=== PATIENT | male | born 1950 | race African-American/Black ===

== ENCOUNTER 2025-02-19 10:10 | Observation (INO) ==
--- NOTE | 2025-02-19 10:56 | Emergency Department Note ---
Impression & Plan Syncope, Seizure-like activity, Bradycardia, Anemia ED Provider Note NAME: BARI [id number] JESUS AGE: 74 SEX: M : 1950 ARRIVES VIA: Ambulance INFORMANT: [Patient] ED PROVIDER(S): [Bob Rasheed MD] CHIEF COMPLAINT: Seizure HISTORY OF PRESENT ILLNESS: The patient is a 74-year-old male who is an [facility] He was having a normal day sitting on a bench watching TV. He was in the yard. The patient states he began to feel dizzy. There was no chest pain, no shortness of breath, no palpitations. He then apparently passed out. Bystanders reported some seizure-like activity and after, a period of apnea. CPR was not initiated. Patient spontaneously regained consciousness. The patient remembers waking up in the yard. He was brought for evaluation. The patient has no history of previous seizure. He has no history of similar circumstances. The patient initially had a lower blood pressure as per the EMS team, this seemed to rebound to though relatively quickly. The patient currently complains of being a bit dizzy still, he has not had recent vomiting or diarrhea, no urinary complaints. As per EMS, BSG was 157. PMHx/PSHx/Social Hx: See Below PHYSICAL EXAM: GENERAL: Patient is in no acute distress. HEENT: No acute trauma, normocephalic atraumatic, mucous membranes moist, no nasal congestion. NECK: No stridor, no adenopathy, no meningismus, trachea is midline. LUNGS: Clear to auscultation bilaterally, no wheeze, no rhonchi, breath sounds equal. HEART: Bradycardic, regular rhythm, no murmurs. ABDOMEN: Soft, nontender, no peritonitis. EXTREMITIES: No cyanosis, full range of motion of all the joints without pain or difficulty. NEUROLOGIC: Oriented x 3, no acute motor or sensory deficits, no focal weakness. SKIN: No jaundice, no diaphoresis. DIFFERENTIAL DIAGNOSIS: Dysrhythmia, seizure, vasovagal syncope, anemia, electrolyte imbalance, among others. EMERGENCY DEPARTMENT PROCEDURES: MEDICAL DECISION MAKING: There is no leukocytosis. The patient does have a mild anemia with a hemoglobin of 12.8. There is a normal platelet count. No bandemia. Creatinine is elevated at 1.73, I have no old values to use for comparison. No electrolyte abnormality in need of emergent correction. Lactic acid level is not elevated making severe sepsis less likely. There was no worrisome liver enzyme elevation. Total CK was not elevated making rhabdomyolysis unlikely. The patient appeared to be in a euthyroid state. ECG showed a sinus bradycardia, no dysrhythmia. Cardiac enzyme testing x 1 is not suggestive of acute cardiac injury. Prolactin level is elevated, consistent with potential seizure activity. Brain CT shows some older changes, no acute bleed or mass effect. Chest x-ray did not show pneumonia or CHF. On exam, the patient was resting comfortably, he was not toxic, he was not febrile. The patient received IV saline, 1 L. The patient presents with syncope and potential seizure-like activity. I am uncertain if he truly had a seizure or if this was an issue with his cardiac rhythm. I do think further workup in the hospital, further monitoring would be warranted. I spoke with the patient and case management, I spoke with the guards. The on- call hospitalist was consulted. Prior/Outside records/notes reviewed: Today's EMS notes describing his presentation and transport to this hospital. ECG per my interpretation: Indication was seizure. The ECG shows a sinus bradycardia with a rate of 55. There is no ST elevation, no PVCs. QTc is 472. Continuous Cardiac Monitoring per my interpretation: An order was placed for continuous cardiac monitoring. The monitor shows a rate of 58 with sinus bradycardia. Imaging/x-ray results per my interpretation: Chest x-ray does not show pneumonia or CHF. Chronic Medical/Social conditions affecting care: Advanced age, currently incarcerated. Care/Management discussed with: Case management, the on-call hospitalist. 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 Encephalomalacia on imaging study Acute kidney injury Syncope and collapse Medical History Hypertension Social History Smoking Status: Current every day smoker Tobacco Type: Cigarettes Preferred Language: French Feels Safe at Home: Yes Results & Data (ED) Vital Signs Vital Signs - 24 hr 02/19/25 10:15 02/19/25 10:20 02/19/25 10:27 Temperature 36.9 C Temperature Source Oral Pulse Rate 58 L Pulse Rate [Apical] Respiratory Rate 20 Respiratory Effort / Characteristics Non-Labored Spontaneous Respiratory Depth Normal Blood Pressure 146/77 H Blood Pressure [Right Arm] Blood Pressure Mean 100 Blood Pressure Mean [Right Arm] Blood Pressure Position Semi-fowlers Blood Pressure Position [Right Arm] Pulse Oximetry 96 98 97 Oxygen Delivery Method Room Air Room Air Room Air Sepsis Recent Fever Within 48 Hours No Sepsis New/Unexplained Change in Mental Status N/A Sepsis Action Taken by Nursing No Action Required 02/19/25 11:15 02/19/25 12:00 Temperature Temperature Source Pulse Rate 57 L Pulse Rate [Apical] 48 L Respiratory Rate 16 Respiratory Effort / Characteristics Non-Labored Spontaneous Respiratory Depth Normal Blood Pressure Blood Pressure [Right Arm] 161/82 H Blood Pressure Mean Blood Pressure Mean [Right Arm] 108 Blood Pressure Position Blood Pressure Position [Right Arm] Semi-fowlers Pulse Oximetry 98 Oxygen Delivery Method Room Air Sepsis Recent Fever Within 48 Hours Sepsis New/Unexplained Change in Mental Status Sepsis Action Taken by [facility] Medications Current Medication List: was personally reviewed by me Laboratory Data Attestation: I reviewed the patient's lab results. 02/19/25 11:10 02/19/25 11:10 Lab Results 02/19/25 02/19/25 02/19/25 Range/Units 11:10 11:34 13:00 WBC 6.42 (4.8-10.8) K/ul RBC 4.02 L (4.70-6.10) M/uL Hgb 12.8 L (14.0-18.0) g/dl Hct 37.7 L (42.0-52.0) % MCV 93.8 (80.0-100.0) fL MCH 31.8 (25.0-34.0) pg MCHC 34.0 (32.0-36.0) g/dL RDW Std Deviation 41.7 (36.4-46.3) fL RDW Coeff of Giorgio 12.0 (11.5-14.5) % Plt Count 256 (130-400) K/uL MPV 10.0 (9.4-12.4) fL Immature Gran % (Auto) 0.5 % Neut % (Auto) 69.4 % Lymph % (Auto) 17.8 % Jones % (Auto) 7.3 % Eos % (Auto) 4.2 % Baso % (Auto) 0.8 % Neut # (Auto) 4.46 (1.40-6.50) K/uL Lymph # (Auto) 1.14 L (1.20-3.40) K/uL Jones # (Auto) 0.47 (0.11-0.59) K/uL Eos # (Auto) 0.27 (0.00-0.50) K/uL Baso # (Auto) 0.05 (0.00-0.20) K/uL Immature Gran # (Auto) 0.03 (0.01-0.20) K/uL Sodium 136 (136-145) mmol/L Potassium 4.4 (3.5-5.1) mmol/L Chloride 101 (98-107) mmol/L Carbon Dioxide 30 (21-32) mmol/L Anion Gap 5 (3-11) BUN 21 (6-23) mg/dl Creatinine 1.73 H (0.6-1.4) mg/dl Est Cr Clr Drug Dosing 42.1 ml/min eGFR 41.42 BUN/Creatinine Ratio 12.1 (10-20) Glucose 128 H (70-99(Fasting)) mg/dl Lactate 1.4 (0.4-2.0) mmol/L Calcium 9.2 (8.6-10.3) mg/dl Magnesium 2.2 (1.7-2.4) mg/dl Total Bilirubin 0.5 (0.2-1.0) mg/dl AST 14 (13-39) U/L ALT 12 (7-52) U/L Alkaline Phosphatase 90 (34-104) U/L Total Creatine Kinase 129 (30-223) U/L Troponin I High Sens 18.3 (0-20) pg/ml Total Protein 7.5 (6.0-8.3) gm/dl Albumin 4.1 (3.4-5.0) gm/dl Globulin 3.4 (2.5-4.0) gm/dl Albumin/Globulin Ratio 1.2 (0.9-2) TSH 2.323 (0.300-4.500) uIu/ml Prolactin 31.83 ng/ml Urine Comment Administered Medications Discontinued Medications Sodium Chloride (Nss) 500 mls @ 999 mls/hr IV .Q31M SHEKHAR Stop: 02/19/25 11:00 Last Infusion: 02/19/25 12:55 Dose: Infused Documented By: Admin: 02/19/25 11:17 Dose: 999 mls/hr Documented By: MMF Sodium Chloride (Nss) 500 mls @ 999 mls/hr IV .Q31M ONE Stop: 02/19/25 11:19 Last Infusion: 02/19/25 12:55 Dose: Infused Documented By: Admin: 02/19/25 11:17 Dose: 999 mls/hr Documented By: MMF Imaging Data Radiologist's Impression: Head CT 02/19/25 10:24 HISTORY: Seizure TECHNIQUE: CT of the head without contrast. Images are presented in axial, sagittal, and coronal reformats. COMPARISON: None. FINDINGS: No evidence of intracranial hemorrhage, abnormal extra axial fluid collection, mass effect, or midline shift. small area of encephalomalacia involving the right anterior frontal lobe. Mild volume loss and chronic microvascular ischemic changes.Ventricular caliber is appropriate. Fourth ventricle is midline. Basal cisterns are patent.Posada-white differentiation is maintained. Mild intracranial atherosclerotic vascular calcifications.What lets wait till later the mix water make ice yeah not right now that he is going to read a little bit okay Globes and orbits are unremarkable.Soft tissues about the skull base and scalp are unremarkable.Paranasal sinuses and mastoid air cells are clear. No calvarial fracture. IMPRESSION: * No acute intracranial findings. * Small area of encephalomalacia involving the right anterior frontal lobe on series 2 image 13 may represent sequela of prior infarct. * Mild volume loss and chronic microvascular ischemic changes. Electronically signed by Shon Welch 02-19-2025 11:47 AM Chest X-Ray 02/19/25 10:25 HISTORY: Weakness TECHNIQUE: Portable AP radiograph of the chest. COMPARISON: None. FINDINGS: No focal lung consolidation. No pneumothorax or pleural effusion. Normal heart size. Left-sided aortic arch. Midline trachea. No acute osseous abnormality. production truck driver leads overlie the chest. IMPRESSION: No acute cardiopulmonary findings. Electronically signed by Shon Welch 02-19-2025 12:09 PM Discharge Plan Visit Data Chief Complaint: Seizure Stated Complaint: SEIZURE ED Provider: Bob Rasheed Discharge Problem: Syncope, Seizure-like activity, Bradycardia, Anemia Patient Disposition: Admitted As Inpatient Condition: Fair Forms Stand Alone Forms: [facility] Referrals Referrals: PCP,NO [Physician] -
[2025-02-19] MEDS: SODIUM CHLORIDE 0.9% 500 ML IV SCH (11:17)
[2025-02-19] MEDS: SODIUM CHLORIDE 0.9% 500 ML IV ONE (11:17)
[2025-02-19 11:26] LABS: Hematocrit (blood only) 37.7 % (42.0-52.0); Hemoglobin 12.8 g/dl (14.0-18.0); Immature Granulocytes # (auto) 0.03 K/uL (0.01-0.20); Immature Granulocytes % (auto) 0.5 %; Mean Corpuscular Hemoglobin 31.8 pg (25.0-34.0); Mean Corpuscular Volume 93.8 fL (80.0-100.0); Platelet Count 256 K/uL (130-400); RDW Standard Deviation 41.7 fL (36.4-46.3); Red Blood Count 4.02 M/uL (4.70-6.10); White Blood Count 6.42 K/ul (4.8-10.8)
[2025-02-19 11:43] LABS: Alanine Aminotransferase 12.0 U/L (7-52); Albumin Globulin Ratio 1.2 (0.9-2); Alkaline Phosphatase 90.0 U/L (34-104); Anion Gap 5.0 (3-11); Bilirubin,Total 0.5 mg/dl (0.2-1.0); Blood Urea Nitrogen 21.0 mg/dl (6-23); Calcium 9.2 mg/dl (8.6-10.3); Carbon Dioxide 30.0 mmol/L (21-32); Chloride 101.0 mmol/L (98-107); Creatine Kinase 129.0 U/L (30-223); Creatinine Clr Calc Pharmacy 42.1 ml/min; Globulin 3.4 gm/dl (2.5-4.0); Glucose 128.0 mg/dl (70-99(Fasting)); Magnesium 2.2 mg/dl (1.7-2.4); Potassium 4.4 mmol/L (3.5-5.1); Sodium 136.0 mmol/L (136-145); Total Protein 7.5 gm/dl (6.0-8.3)
--- NOTE | 2025-02-19 11:48 | CT Scan Report ---
HISTORY: Seizure TECHNIQUE: CT of the head without contrast. Images are presented in axial, sagittal, and coronal reformats. COMPARISON: None. FINDINGS: No evidence of intracranial hemorrhage, abnormal extra axial fluid collection, mass effect, or midline shift. small area of encephalomalacia involving the right anterior frontal lobe. Mild volume loss and chronic microvascular ischemic changes.Ventricular caliber is appropriate. Fourth ventricle is midline. Basal cisterns are patent.Posada-white differentiation is maintained. Mild intracranial atherosclerotic vascular calcifications.What lets wait till later the mix water make ice yeah not right now that he is going to read a little bit okay Globes and orbits are unremarkable.Soft tissues about the skull base and scalp are unremarkable.Paranasal sinuses and mastoid air cells are clear. No calvarial fracture. IMPRESSION: * No acute intracranial findings. * Small area of encephalomalacia involving the right anterior frontal lobe on series 2 image 13 may represent sequela of prior infarct. * Mild volume loss and chronic microvascular ischemic changes. Electronically signed by Shon Welch 02-19-2025 11:47 AM
[2025-02-19 12:00] LABS: Thyroid Stimulating Hormone 2.323 uIu/ml (0.300-4.500)
--- NOTE | 2025-02-19 12:09 | XRay Report ---
HISTORY: Weakness TECHNIQUE: Portable AP radiograph of the chest. COMPARISON: None. FINDINGS: No focal lung consolidation. No pneumothorax or pleural effusion. Normal heart size. Left-sided aortic arch. Midline trachea. No acute osseous abnormality. threat monitoring analyst leads overlie the chest. IMPRESSION: No acute cardiopulmonary findings. Electronically signed by Shon Welch 02-19-2025 12:09 PM
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
[2025-02-19 13:22] LABS: Appearance Urine Clear (Clear); Bacteria Urine Automated None Seen (None Seen); Epithelial Cell Urine Auto 0-2 /hpf (0-2); Glucose Urine UA Negative (Negative); RBC Urine Automated 0-2 /hpf (0-2); WBC Urine Automated 0-5 /hpf (0-5)
[2025-02-19 13:36] LABS: Amphetamines+Metham, Urine Neg (Neg); MDMA (Ecstacy), Urine Neg (Neg); Marijuana, Urine Neg (Neg)
[2025-02-19] MEDS ORDERED: ACETAMINOPHEN 325 MG TAB PO PRN (14:18)
[2025-02-19] MEDS ORDERED: ALUMINUM/MAGNESIUM SUSP 30 ML UDC PO PRN (14:18)
[2025-02-19] MEDS ORDERED: ONDANSETRON INJ 2 MG/ML 2 ML VIAL IV PRN (14:18)
[2025-02-19] MEDS ORDERED: POLYETHYLENE (MIRALAX) 17 GM PACK PO PRN (14:18)
[2025-02-19] MEDS: SODIUM CHLORIDE 0.9% 1,000 ML IV SCH (14:37)
[2025-02-20 06:36] LABS: Hematocrit (blood only) 33.8 % (42.0-52.0); Hemoglobin 11.3 g/dl (14.0-18.0); Mean Corpuscular Hemoglobin 31.7 pg (25.0-34.0); Mean Corpuscular Volume 94.7 fL (80.0-100.0); Platelet Count 229 K/uL (130-400); RDW Standard Deviation 41.8 fL (36.4-46.3); Red Blood Count 3.57 M/uL (4.70-6.10); White Blood Count 5.87 K/ul (4.8-10.8)
[2025-02-20 06:58] LABS: Anion Gap 5.0 (3-11); Blood Urea Nitrogen 19.0 mg/dl (6-23); Calcium 8.2 mg/dl (8.6-10.3); Carbon Dioxide 27.0 mmol/L (21-32); Chloride 106.0 mmol/L (98-107); Creatinine Clr Calc Pharmacy 51.6 ml/min; Glucose 97.0 mg/dl (70-99(Fasting)); Magnesium 2.0 mg/dl (1.7-2.4); Potassium 4.1 mmol/L (3.5-5.1); Sodium 138.0 mmol/L (136-145)
[2025-02-20 07:13] LABS: Hemoglobin A1C 5.5 % (4.5-5.6)
[2025-02-20] MEDS: ASPIRIN 81 MG ECTAB PO SCH (08:09)
[2025-02-20] MEDS: GADOBUTROL 65ML VIAL IV ONE (10:51)
--- NOTE | 2025-02-20 11:18 | Magnetic Resonance Report ---
MRI OF THE BRAIN COMBO CLINICAL HISTORY: Seizure. COMPARISON STUDY: Head CT February 19, 2025. TECHNIQUE: MRI of the brain was performed utilizing various T1 and T2-weighted sequences in the axial , sagittal, and coronal planes. Contrast-enhanced sequences were acquired following the administratio n of 9 cc of Gadavist. FINDINGS: There are no foci of restricted diffusion to suggest acute infarct. No acute intracranial h emorrhage, midline shift or mass effect is present. Ventricular system is unremarkable. Basal cistern s are patent. Flow-voids for the major intracranial vessels are present. There is no intracranial mas s or pathologic enhancement. Several small foci of encephalomalacia within the anterior right frontal lobe are noted. Mild white matter T2 hyperintense foci suggest mild small vessel disease. The left m axillary sinus is largely opacified. There is left maxillary sinus mucosal thickening. No orbital abn ormalities are identified. IMPRESSION: 1. No acute intracranial findings. 2. No intracranial mass or pathologic enhancement. 3. Anterior right frontal lobe encephalomalacia. This is chronic and may represent sequela of previou s infarct or trauma. 4. Opacified left maxillary sinus. ACT 112: Negative or not required by law. Electronically signed by: Stalin Robledo M.D. 02/20/2025 11:15 AM
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
--- NOTE | 2025-02-21 14:12 | Electrocardiogram Report ---
Test Reason : Blood Pressure : */* mmHG Vent. Rate : 55 BPM Atrial Rate : 55 BPM P-R Int : 188 ms QRS Dur : 100 ms QT Int : 494 ms P-R-T Axes : 47 -35 -1 degrees QTcB Int : 472 ms Sinus bradycardia Left axis deviation Consider ischemia Septal leads Nonspecific T wave abnormality Inferior leads Abnormal ECG No previous ECGs available Confirmed by Ismael Reed ([id number]) on 02/21/2025 2:12:08 PM Referred By: Confirmed By: Ismael Reed
== END 2025-02-20 18:24 | disposition home or self-care (01) ==
LOC: ED 10:10 → 2W 10:10 → SUATTDRO 12:57 → 2W 13:59